=== PATIENT | male | born 1940 | race Caucasian/White ===

== ENCOUNTER 2017-03-23 10:45 | Outpatient (CLI) | payer MEDICARE ==
[2017-03-23 18:18] LABS: BASOPHILS % (AUTO) 0.5 %; EOSINOPHILS # (AUTO) 0.1 10^3/uL (0.0-0.7); EOSINOPHILS % (AUTO) 3.3 %; HCT - HEMATOCRIT 46.2 % (42.0-52.0); HGB - HEMOGLOBIN 15.5 g/dL (14.0-18.0); LYMPHOCYTES # (AUTO) 0.6 10^3/uL (1.5-3.5); LYMPHOCYTES % (AUTO) 16.5 %; MEAN CORPUSCULAR HEMOGLOBIN 32.3 pg (27.0-31.0); MEAN CORPUSCULAR HGB CONC 33.6 g/dL (32.0-36.0); MEAN CORPUSCULAR VOLUME 95.9 fL (80.0-94.0); MEAN PLATELET VOLUME 9.7 fL (7.4-11.4); MONOCYTES # (AUTO) 0.3 10^3/uL (0.0-1.0); MONOCYTES % (AUTO) 8.3 %; NEUTROPHILS # (AUTO) 2.8 10^3/uL (1.5-6.6); NEUTROPHILS % (AUTO) 71.4 %; NUCLEATED RED BLOOD CELLS AUTO 0.1 /100WBC; RED BLOOD COUNT 4.82 10^6/uL (4.70-6.10); RED CELL DISTRIBUTION WIDTH 13.4 % (12.0-15.0); UNCORRECTED WHITE BLOOD COUNT 3.9 x10^3/uL; WHITE BLOOD COUNT 3.9 x10^3/uL (4.8-10.8)
[2017-03-23 18:48] LABS: CHOL/HDL RATIO 5.3 (<5.0); CHOLESTEROL 227 mg/dL; HDL CHOLESTEROL 43 mg/dL; LDL/HDL RATIO 3.7 (<3.6); TRIGLYCERIDES 116 mg/dL; URIC ACID 6.7 mg/dL (2.6-7.2); VLDL CHOLESTEROL 23 mg/dL
[2017-03-23 20:33] LABS: HEMOGLOBIN A1C 0.7 g/dL
== END 2017-03-23 10:46 | disposition home or self-care (01) ==
LOC: LAB.F 10:45
PROVIDERS: ATTEND Internal Medicine
DX: E74.39 Other disorders of intestinal carbohydrate absorption (principal); E78.5 Hyperlipidemia, unspecified; R73.9 Hyperglycemia, unspecified; M1A.9XX0 Chronic gout, unspecified, without tophus (tophi); Z79.899 Other long term (current) drug therapy
CPT/HCPCS: 36415; 80061; 83036; 84443; 84550; 85025

== ENCOUNTER 2017-03-26 08:00 | Outpatient (CLI) | payer MEDICARE ==
[2017-03-26 19:34] LABS: ALBUMIN/GLOBULIN RATIO 1.7 (1.0-2.2); BILIRUBIN,TOTAL 1.2 mg/dL (0.2-1.0); CREATININE 1.1 mg/dL (0.6-1.2); POTASSIUM 4.1 mmol/L (3.5-5.0); TOTAL PROTEIN 6.8 g/dL (6.7-8.2)
== END 2017-03-26 08:01 | disposition home or self-care (01) ==
LOC: LAB.S 08:00
PROVIDERS: ATTEND Internal Medicine
DX: E74.39 Other disorders of intestinal carbohydrate absorption (principal); E78.5 Hyperlipidemia, unspecified; M1A.9XX0 Chronic gout, unspecified, without tophus (tophi); Z79.899 Other long term (current) drug therapy
CPT/HCPCS: 80053

== ENCOUNTER 2018-04-18 09:04 | Outpatient (CLI) | payer MEDICARE ==
[2018-04-18 17:19] LABS: BASOPHILS % (AUTO) 0.7 %; EOSINOPHILS # (AUTO) 0.1 10^3/uL (0.0-0.7); EOSINOPHILS % (AUTO) 3.1 %; HGB - HEMOGLOBIN 15.3 g/dL (14.0-18.0); LYMPHOCYTES # (AUTO) 0.9 10^3/uL (1.5-3.5); LYMPHOCYTES % (AUTO) 18.7 %; MEAN CORPUSCULAR HGB CONC 34.3 g/dL (32.0-36.0); MEAN PLATELET VOLUME 9.3 fL (7.4-11.4); MONOCYTES # (AUTO) 0.5 10^3/uL (0.0-1.0); MONOCYTES % (AUTO) 11.7 %; NEUTROPHILS % (AUTO) 65.8 %; PLT - PLATELET COUNT 141 10^3/uL (130-450); RED BLOOD COUNT 4.64 10^6/uL (4.70-6.10); RED CELL DISTRIBUTION WIDTH 13.4 % (12.0-15.0); WHITE BLOOD COUNT 4.6 x10^3/uL (4.8-10.8)
[2018-04-18 18:00] LABS: ALBUMIN/GLOBULIN RATIO 1.4 (1.0-2.2); BILIRUBIN,TOTAL 0.9 mg/dL (0.2-1.0); CREATININE 1.1 mg/dL (0.6-1.2); TOTAL PROTEIN 6.9 g/dL (6.7-8.2); URIC ACID 7.1 mg/dL (2.6-7.2)
[2018-04-18 18:56] LABS: HB2 TOTAL 16.1 g/dL; HEMOGLOBIN A1C 0.73 g/dL; HEMOGLOBIN A1C % 6.3 % (4.6-6.2)
== END 2018-04-18 09:05 | disposition home or self-care (01) ==
LOC: LAB.F 09:04
PROVIDERS: ATTEND Internal Medicine
DX: R73.9 Hyperglycemia, unspecified (principal); E78.5 Hyperlipidemia, unspecified; M1A.9XX0 Chronic gout, unspecified, without tophus (tophi)
CPT/HCPCS: 36415; 80053; 83036; 84550; 85025

== ENCOUNTER 2018-11-08 07:47 | Outpatient (CLI) | payer MEDICARE ==
--- NOTE | 2018-11-08 15:09 | Ultrasound Report ---
Reason: PAIN IN RIGHT LOWER LEG Procedure Date: 11/08/2018 Accession Number: [id number] / [id number] Procedure: US - Ankle Brachial Index CPT Code: FULL RESULT: EXAM: BILATERAL ANKLE/BRACHIAL INDEX EXAM DATE: 11/08/2018 09:27 AM. CLINICAL HISTORY: Right leg pain COMPARISON: None. TECHNIQUE: A blood pressure cuff and pulse volume recording Doppler ultrasound was used to evaluate the arterial pressures in the arms and ankle. No images were acquired. FINDINGS: Brachial pressure: Right brachial artery: 205/81 Left brachial artery: 205/81 Right ankle pressures: 79/20. Right posterior tibial artery not seen. Peak systolic velocity dorsalis pedis artery 9 cm/s. Monophasic flow. Left ankle pressures: 97/70. Posterior tibial artery peak systolic velocity 8 cm/s, dorsalis pedis artery 3 cm/s. Monophasic blood flow of both arteries. IMPRESSION: 1. Right ankle/brachial index: 0.39. 2. Left ankle/brachial index: 0.47. ANKLE/BRACHIAL INDEX REFERENCE STANDARDS 1.0-1.4: Normal 0.90-0.99: Borderline < 0.9: Abnormal RADIA
== END 2018-11-08 07:48 | disposition home or self-care (01) ==
LOC: DI 07:47
PROVIDERS: ATTEND Internal Medicine
DX: M79.661 Pain in right lower leg (principal)
CPT/HCPCS: 93922

== ENCOUNTER 2018-11-20 22:18 | Outpatient (CLI) | payer MEDICARE ==
--- NOTE | 2018-11-21 01:15 | Ultrasound Report ---
Reason: CLAUDICATION DUE TO PERIPHERAL VASCULAR DISEASE Procedure Date: 11/20/2018 Accession Number: [id number] / [id number] Procedure: US - Duplex Lwr Ext Arterial Bilat CPT Code: FULL RESULT: EXAM: BILATERAL LOWER EXTREMITY ARTERIAL DOPPLER ULTRASOUND EXAM DATE: 11/20/2018 11:55 PM. CLINICAL HISTORY: Claudication due to peripheral vascular disease. COMPARISON: None. TECHNIQUE: Real-time sonographic vascular imaging was performed by the income tax preparer, utilizing color-flow, Doppler flow, and spectral analysis. Multiple floor representative static images were saved for review. FINDINGS: Right Side: Moderate calcified and soft plaque is noted throughout the right distal common femoral as well as within the superficial femoral arteries. Occluded superficial femoral artery at the midportion and extending distally. There are adjacent arterial collaterals noted. Reconstitution is noted at the level of the popliteal artery. However, occluded arterial flow is again seen involving the posterior tibial and peroneal arteries. There is slow flow seen within the distal peroneal artery. Slow flow noted within the anterior tibial artery and into the dorsalis pedis region. Left Side: Moderate to severe atherosclerotic vascular disease within the distal left common femoral artery. Similar moderate to severe atherosclerosis within the superficial femoral artery. Focal occlusion of the left distal superficial femoral artery with collateral vascularity seen. Occluded left distal popliteal artery. Patent anterior tibial, peroneal, and posterior tibial arteries with patent blood flow seen within the left dorsalis pedis. High-grade stenosis at the origin of the left profunda femoris. Right Lower Extremity: MOLDER MACHINE TENDER: PSV 92 cm/sec. PSFA: PSV 99 cm/sec. MSFA: Occluded, no flow seen. DSFA: Occluded, no flow seen. PFA: PSV 112 cm/sec. POP: PSV 121 cm/sec. RASHMI: PSV 19 cm/sec. RECORDS MANAGEMENT COORDINATOR: Not seen/occluded. PRIYA: PSV 18 cm/sec. DPA: PSV 40 cm/sec. Left Lower Extremity: MOLDER MACHINE TENDER: PSV 76 cm/sec. PSFA: PSV 62 cm/sec. MSFA: PSV 47 cm/sec. DSFA: Occluded, no flow seen. PFA: Pre-stenosis PSV 135 cm/sec, at stenosis PSV 399 cm/sec. POP: PSV 90 cm/sec, occluded. RASHMI: PSV 7 cm/sec. RECORDS MANAGEMENT COORDINATOR: PSV 16 cm/sec. PRIYA: PSV 14 cm/sec. DPA: PSV 10 cm/sec. IMPRESSION: 1. Occlusion of the middle and distal portions of the right superficial femoral artery with collateral vascularity seen around this occluded segment. Reconstitution at the level of the popliteal artery. 2. Occlusion of the posterior tibial artery on the right and proximal peroneal artery on the right. 3. Occluded distal femoral artery on the left. Occluded left popliteal artery. Patent distal lower extremity arteries on the left. 4. High-grade stenosis at the origin of the left profunda femoris. 4. Moderate to severe atherosclerotic vascular disease within the common femoral and the superficial femoral arteries bilaterally. RADIA The call report notification system was initiated by Dr. Manav Byrnes at 01:13 AM on 11/21/2018. The above call report findings were discussed with Hollis Chapman by Dr. Manav Byrnes at 01:15 AM on 11/21/2018.
== END 2018-11-20 22:19 | disposition home or self-care (01) ==
LOC: DI 22:18
PROVIDERS: ATTEND Family Medicine
DX: I73.9 Peripheral vascular disease, unspecified (principal); I70.92 Chronic total occlusion of artery of the extremities; I70.202 Unspecified atherosclerosis of native arteries of extremities, left leg
CPT/HCPCS: 93925

== ENCOUNTER 2019-01-02 09:42 | Outpatient (CLI) | payer MEDICARE ==
[2019-01-02 18:02] LABS: ALBUMIN 4.2 g/dL (3.2-5.5); ALBUMIN/GLOBULIN RATIO 1.2 (1.0-2.2); ALKALINE PHOSPHATASE 57 IU/L (42-121); ALT ALANINE AMINOTRANSFERASE 13 IU/L (10-60); AST ASPARTATE AMINOTRANSFERASE 15 IU/L (10-42); BILIRUBIN,TOTAL 0.8 mg/dL (0.2-1.0); BUN - BLOOD UREA NITROGEN 24 mg/dL (6-20); CALCIUM 9.4 mg/dL (8.5-10.3); CARBON DIOXIDE - CO2 29 mmol/L (21-32); CHLORIDE 100 mmol/L (101-111); CHOL/HDL RATIO 6.2 (<5.0); CHOLESTEROL 203 mg/dL; GFR - MDRD 72 (>89); GLUCOSE 114 mg/dL (70-100); HDL CHOLESTEROL 33 mg/dL; LDL CHOLESTEROL,CALCULATED 139 mg/dL; LDL/HDL RATIO 4.2 (<3.6); SODIUM 137 mmol/L (135-145); TOTAL PROTEIN 7.6 g/dL (6.7-8.2); VLDL CHOLESTEROL 31 mg/dL
[2019-01-02 19:02] LABS: HB2 TOTAL 15.1 g/dL; HEMOGLOBIN A1C 0.68 g/dL; HEMOGLOBIN A1C % 6.3 % (4.6-6.2)
== END 2019-01-02 09:43 | disposition home or self-care (01) ==
LOC: LAB.F 09:42
PROVIDERS: ATTEND Internal Medicine
DX: E78.5 Hyperlipidemia, unspecified (principal); R73.02 Impaired glucose tolerance (oral)
CPT/HCPCS: 36415; 80053; 80061; 83036; 83721

== ENCOUNTER 2019-01-15 08:21 | Outpatient (CLI) | payer MEDICARE ==
--- NOTE | 2019-01-15 09:33 | XRAY Report ---
Reason: CELLULITIS,FOOT,LEFT L03.116 Procedure Date: 01/15/2019 Accession Number: [id number] / [id number] Procedure: XRS - Foot 3 View LT CPT Code: FULL RESULT: EXAM: LEFT FOOT RADIOGRAPHY EXAM DATE: 01/15/2019 08:48 AM. CLINICAL HISTORY: Cellulitis, foot, left. l03.116. Worsening cellulitis despite appropriate antibiotics. Possible osteomyelitis. COMPARISON: None. TECHNIQUE: 3 views. FINDINGS: Bones: Moderate posterior calcaneal insertional enthesophyte. There is mild osseous lucency in the region of the lateral aspect of the first metatarsal head without definite osseous destruction in the area. Oblique view is suggestive of periosteal reaction formation in the same region. No fractures or bone lesions. Joints: Normal. No subluxations. Soft Tissues: No soft tissue gas is detected. IMPRESSION: Correlate questionable osseous changes in the region of the head of the first metatarsal to the area of infection, if the two correspond, this raises suspicion for osteomyelitis. RADIA
== END 2019-01-15 08:22 | disposition home or self-care (01) ==
LOC: DI.S 08:21
PROVIDERS: ATTEND Internal Medicine
DX: L03.116 Cellulitis of left lower limb (principal)

== ENCOUNTER 2019-05-20 11:42 | Outpatient (CLI) | payer MEDICARE | END 2019-05-20 11:43 | disposition home or self-care (01) | LOC: LAB.S 11:42 | PROVIDERS: ATTEND Internal Medicine | DX: I48.91 Unspecified atrial fibrillation (principal); Z79.01 Long term (current) use of anticoagulants | CPT/HCPCS: 85610 ==

== ENCOUNTER 2019-06-16 15:04 | Outpatient (CLI) | payer MEDICARE | END 2019-06-16 15:05 | disposition home or self-care (01) | LOC: LAB.S 15:04 | PROVIDERS: ATTEND Internal Medicine | DX: Z79.01 Long term (current) use of anticoagulants (principal); I48.91 Unspecified atrial fibrillation | CPT/HCPCS: 85610 ==

== ENCOUNTER 2019-06-25 13:27 | Outpatient (CLI) | payer MEDICARE ==
[2019-06-25 17:11] LABS: BASOPHILS % (AUTO) 0.4 %; EOSINOPHILS # (AUTO) 0.2 10^3/uL (0.0-0.7); EOSINOPHILS % (AUTO) 4.1 %; HGB - HEMOGLOBIN 13.3 g/dL (14.0-18.0); LYMPHOCYTES # (AUTO) 0.8 10^3/uL (1.5-3.5); LYMPHOCYTES % (AUTO) 16.2 %; MEAN CORPUSCULAR HEMOGLOBIN 31.7 pg (27.0-31.0); MEAN CORPUSCULAR HGB CONC 32.5 g/dL (32.0-36.0); MEAN CORPUSCULAR VOLUME 97.4 fL (80.0-94.0); MEAN PLATELET VOLUME 11.7 fL (7.4-11.4); MONOCYTES # (AUTO) 0.5 10^3/uL (0.0-1.0); MONOCYTES % (AUTO) 11.4 %; NEUTROPHILS # (AUTO) 3.1 10^3/uL (1.5-6.6); NEUTROPHILS % (AUTO) 67.7 %; PLT - PLATELET COUNT 145 10^3/uL (130-450); RED CELL DISTRIBUTION WIDTH 12.7 % (12.0-15.0); WHITE BLOOD COUNT 4.6 x10^3/uL (4.8-10.8)
[2019-06-25 17:16] LABS: INR 2.5 (0.8-1.2); PT - PROTHROMBIN TIME 26.8 secs (9.9-12.6)
[2019-06-25 17:31] LABS: CALCIUM 9.3 mg/dL (8.5-10.3); CREATININE 1.2 mg/dL (0.6-1.2)
== END 2019-06-25 13:28 | disposition home or self-care (01) ==
LOC: LAB.S 13:27
PROVIDERS: ATTEND Internal Medicine Cardiovascular Disease
DX: I25.2 Old myocardial infarction (principal); I25.9 Chronic ischemic heart disease, unspecified; E78.5 Hyperlipidemia, unspecified
CPT/HCPCS: 36415; 80048; 85025; 85610

== ENCOUNTER 2019-07-18 11:00 | Outpatient (CLI) | payer MEDICARE | END 2019-07-18 23:59 | disposition home or self-care (01) | LOC: LAB.S 11:00 | PROVIDERS: ATTEND Internal Medicine | DX: Z79.01 Long term (current) use of anticoagulants (principal); I48.91 Unspecified atrial fibrillation | CPT/HCPCS: 85610 ==

== ENCOUNTER 2019-07-30 14:55 | Outpatient (CLI) | payer MEDICARE | END 2019-07-30 14:56 | disposition home or self-care (01) | LOC: LAB.S 14:55 | PROVIDERS: ATTEND Internal Medicine | DX: Z79.01 Long term (current) use of anticoagulants (principal); I48.91 Unspecified atrial fibrillation | CPT/HCPCS: 85610 ==

== ENCOUNTER 2019-08-18 10:26 | Outpatient (CLI) | payer MEDICARE | END 2019-08-18 10:27 | disposition home or self-care (01) | LOC: LAB.S 10:26 | PROVIDERS: ATTEND Family Medicine | DX: Z79.01 Long term (current) use of anticoagulants (principal) | CPT/HCPCS: 85610 ==

== ENCOUNTER 2019-08-31 09:06 | Emergency (ER) | payer MEDICARE ==
--- NOTE | 2019-08-31 09:30 | ED Physician Documentation ---
PD HPI UPPER EXT INJURY - Stated complaint Stated Complaint: RT ARM LAC - History obtained from History obtained from: Patient, Family - History of Present Illness Location: Right, Forearm Type of injury: Other (scratched with a fingernail) Where injury occurred: Home Timing - onset: Yesterday Timing - duration: Days (1) Timing - details: Abrupt onset, Still present Worsened by: Moving Associated symptoms: No: Weakness, Numbness Contributing factors: Anticoagulated Similar symptoms before: Diagnosis (laceration) Recently seen: Not recently seen - Additonal information Additional information: 79-year-old male with a history of peripheral vascular disease who is on multiple blood thinners has scratched his right forearm with his fingernail and has a linear abrasion that continues to bleed. He has had blood oozing through the entire night and he is come in now for evaluation. Review of Systems Constitutional: denies: Fever GI: denies: Vomiting Skin: reports: Laceration (s) Neurologic: denies: Generalized weakness, Focal weakness, Numbness PD PAST MEDICAL HISTORY - Present Medications Home Medications: Ambulatory Orders Medication Instructions Recorded Confirmed Isosorbide Mononitrate ER [Imdur] 60 mg DAILY 08/31/19 08/31/19 Lisinopril [Zestril] 20 mg DAILY 08/31/19 08/31/19 Metoprolol Tartrate 25 mg PO BID 08/31/19 08/31/19 Pantoprazole [Protonix] 20 mg DAILY 08/31/19 08/31/19 Rosuvastatin Calcium 20 mg DAILY 08/31/19 08/31/19 Warfarin [Coumadin] 2.5 mg DAILY 08/31/19 08/31/19 amLODIPine [Norvasc] 5 mg DAILY 08/31/19 08/31/19 metFORMIN [Glucophage] 1,000 mg DAILY 08/31/19 08/31/19 - Allergies Allergies/Adverse Reactions: Allergies Allergy/AdvReac Type Severity Reaction Status Date / Time No Known Drug Allergies Allergy Verified 08/31/19 09:28 PD ED PE NORMAL - Vitals Vital signs reviewed: Yes - General General: Alert and oriented X 3, No acute distress, Well developed/nourished - HEENT HEENT: Atraumatic, PERRL, EOMI - Respiratory Respiratory: No respiratory distress - Derm Derm: Normal color, Warm and dry, No rash - Extremities Extremities: No deformity, No edema, Other (There is a 3 cm superficial laceration to the right forearm that is oozing blood. There is ecchymosis to the surrounding area.) - Neuro Neuro: No motor deficit, No sensory deficit Results - Vitals Vitals: Vital Signs - 24 hr 08/31/19 09:15 Temperature 36.8 C Heart Rate 52 L Respiratory 16 Rate Blood Pressure 170/64 H O2 Saturation 98 Oxygen O2 Source Room air - Labs Labs: Laboratory Tests 08/31/19 09:37 Whole Blood INR 3.1 H Procedures - Laceration (location) forearm Length in cm: 3 Wound type: Linear, Superficial Neurovascular status: Sensory intact, Motor intact, Vascular intact Wound Preparation: Irrigated copiously NS, Wound explored, To the base Skin layer closure: Dermabond, Steri strips Other: Patient tolerated well, No complications, Neurovascular intact, Dressing applied Complexity: Simple Departure - Departure Disposition: 01 Home, Self Care Clinical Impression: Forearm laceration Qualifiers: Encounter type: initial encounter Laterality: right Qualified Code(s): S51.811A - Laceration without foreign body of right forearm, initial encounter Condition: Stable Instructions: ED Laceration Ext Skin Glue Follow-Up: Yehuda Tamez MD [Primary Care Provider] -
[2019-08-31 10:18] VITALS: BP 146/54
== END 2019-08-31 10:20 | disposition home or self-care (01) ==
LOC: ED 09:06
DX: S51.811A Laceration without foreign body of right forearm, initial encounter (principal); Z79.01 Long term (current) use of anticoagulants
CPT/HCPCS: 12002; 85610; 99282; 99283

== ENCOUNTER 2019-09-15 11:43 | Outpatient (CLI) | payer MEDICARE | END 2019-09-15 11:44 | disposition home or self-care (01) | LOC: LAB.S 11:43 | PROVIDERS: ATTEND Family Medicine | DX: Z79.01 Long term (current) use of anticoagulants (principal) | CPT/HCPCS: 85610 ==

== ENCOUNTER 2019-10-16 08:00 | Outpatient (CLI) | payer MEDICARE | END 2019-10-16 23:59 | disposition home or self-care (01) | LOC: LAB.WCP 08:00 | PROVIDERS: ATTEND Family Medicine | DX: I48.91 Unspecified atrial fibrillation (principal); Z79.01 Long term (current) use of anticoagulants ==

== ENCOUNTER 2019-12-09 13:11 | Outpatient (CLI) | payer MEDICARE | END 2019-12-09 13:12 | disposition home or self-care (01) | LOC: LAB.S 13:11 | PROVIDERS: ATTEND Family Medicine | DX: Z79.01 Long term (current) use of anticoagulants (principal) | CPT/HCPCS: 85610 ==

== ENCOUNTER 2020-01-06 10:57 | Outpatient (CLI) | payer MEDICARE | END 2020-01-06 10:58 | disposition home or self-care (01) | LOC: LAB.S 10:57 | PROVIDERS: ATTEND Family Medicine | DX: Z79.01 Long term (current) use of anticoagulants (principal) | CPT/HCPCS: 85610 ==

== ENCOUNTER 2020-02-05 13:49 | Outpatient (CLI) | payer MEDICARE | END 2020-02-05 13:50 | disposition home or self-care (01) | LOC: LAB.S 13:49 | PROVIDERS: ATTEND Family Medicine | DX: Z79.01 Long term (current) use of anticoagulants (principal) | CPT/HCPCS: 85610 ==

== ENCOUNTER 2020-03-08 14:03 | Outpatient (CLI) | payer MEDICARE | END 2020-03-08 14:04 | disposition home or self-care (01) | LOC: LAB.S 14:03 | PROVIDERS: ATTEND Family Medicine | DX: Z79.01 Long term (current) use of anticoagulants (principal) | CPT/HCPCS: 85610 ==

== ENCOUNTER 2020-04-03 23:06 | Emergency (ER) | payer MEDICARE ==
--- NOTE | 2020-04-03 23:14 | ED Physician Documentation ---
History of Present Illness - Stated complaint Stated Complaint: L ELBOW LAC - History obtained from History obtained from: Patient - Additonal information Additional information: 79-year-old male accidentally tore a small portion of skin over his left elbow. Accidentally injured it against a doorknob. He is on Coumadin and reports here for evaluation. Review of Systems Constitutional: reports: Reviewed and negative Eyes: reports: Reviewed and negative Ears: reports: Reviewed and negative Nose: reports: Reviewed and negative Throat: reports: Reviewed and negative Cardiac: reports: Reviewed and negative Respiratory: reports: Reviewed and negative GI: reports: Reviewed and negative : reports: Reviewed and negative Skin: reports: Laceration (s), Other (Skin tear and bleeding) Musculoskeletal: reports: Reviewed and negative Neurologic: reports: Reviewed and negative Psychiatric: reports: Reviewed and negative Endocrine: reports: Reviewed and negative Immunocompromised: reports: Reviewed and negative PD PAST MEDICAL HISTORY - Present Medications Home Medications: Ambulatory Orders Medication Instructions Recorded Confirmed Isosorbide Mononitrate ER [Imdur] 60 mg DAILY 08/31/19 08/31/19 Lisinopril [Zestril] 20 mg DAILY 08/31/19 08/31/19 Metoprolol Tartrate 25 mg PO BID 08/31/19 08/31/19 Pantoprazole [Protonix] 20 mg DAILY 08/31/19 08/31/19 Rosuvastatin Calcium 20 mg DAILY 08/31/19 08/31/19 Warfarin [Coumadin] 2.5 mg DAILY 08/31/19 08/31/19 amLODIPine [Norvasc] 5 mg DAILY 08/31/19 08/31/19 metFORMIN [Glucophage] 1,000 mg DAILY 08/31/19 08/31/19 - Allergies Allergies/Adverse Reactions: Allergies Allergy/AdvReac Type Severity Reaction Status Date / Time No Known Drug Allergies Allergy Verified 04/03/20 23:13 PD ED PE NORMAL - Vitals Vital signs reviewed: Yes - General General: Alert and oriented X 3, No acute distress, Well developed/nourished - HEENT HEENT: PERRL - Neck Neck: Supple, no meningeal sign - Cardiac Cardiac: RRR, No murmur, Strong equal pulses - Respiratory Respiratory: No respiratory distress, Clear bilaterally - Abdomen Abdomen: Normal bowel sounds, Soft, Non tender, Non distended, No organomegaly - Derm Derm: Normal color, Warm and dry, Other (Small skin tear over the left proximal forearm approximately 2 cm with minimal bleeding radian, median, ulnar motor and sensory exam are intact compartments are soft neurovascular intact) - Extremities Extremities: No deformity, Other (Small skin tear over the left proximal forearm approximately 2 cm with minimal bleeding radian, median, ulnar motor and sensory exam are intact compartments are soft neurovascular intact) - Neuro Neuro: Alert and oriented X 3 - Psych Psych: Normal mood, Normal affect Results - Vitals Vitals: Vital Signs - 24 hr 04/03/20 04/04/20 23:13 00:27 Temperature 36.5 C 36.8 C Heart Rate 84 82 Respiratory 16 16 Rate Blood Pressure 180/94 H 149/61 H O2 Saturation 97 96 Oxygen O2 Source Room air Procedures - General procedure General procedure: Skin tear to the left elbow region its superficial there is minimal bleeding it was irrigated he is up-to-date on his tetanus bacitracin and simple pressure dressing were applied with bleeding controlled. PD MEDICAL DECISION MAKING - ED course ED course: 79-year-old male on Coumadin suffered a small skin tear over his left proximal forearm/elbow region presents for evaluation his tetanus is up-to-date wound was irrigated no foreign bodies identified bleeding was controlled with a simple pressure dressing bacitracin was applied he should follow-up on Sunday with his primary care provider for a wound check. Departure - Departure Disposition: 01 Home, Self Care Clinical Impression: Skin tear Condition: Stable Instructions: ED Avulsion Dermal Follow-Up: Yehuda Tamez MD [Primary Care Provider] - Tomorrow Comments: Keep wound clean, dressed and protected at all times. follow-up on Sunday with your doctor for a wound check. Discharge Date/Time: 04/04/20 00:28
[2020-04-04] MEDS ORDERED: BACITRACIN ZINC OINT 1 PACKET TOP STA (00:10)
[2020-04-04 00:28] VITALS: BP 149/61
== END 2020-04-04 00:28 | disposition home or self-care (01) ==
LOC: ED 23:06
DX: S51.812A Laceration without foreign body of left forearm, initial encounter (principal); W22.8XXA Striking against or struck by other objects, initial encounter; Z79.01 Long term (current) use of anticoagulants
CPT/HCPCS: 99282; A9270

== ENCOUNTER 2020-05-07 12:22 | Outpatient (CLI) | payer MEDICARE | END 2020-05-07 12:23 | disposition home or self-care (01) | LOC: LAB.S 12:22 | PROVIDERS: ATTEND Family Medicine | DX: Z79.01 Long term (current) use of anticoagulants (principal) | CPT/HCPCS: 85610 ==

== ENCOUNTER 2020-06-07 11:05 | Outpatient (CLI) | payer MEDICARE | END 2020-06-07 11:06 | disposition home or self-care (01) | LOC: LAB.S 11:05 | PROVIDERS: ATTEND Family Medicine | DX: Z79.01 Long term (current) use of anticoagulants (principal) | CPT/HCPCS: 85610 ==

== ENCOUNTER 2020-07-07 12:35 | Outpatient (CLI) | payer MEDICARE | END 2020-07-07 12:36 | disposition home or self-care (01) | LOC: LAB.S 12:35 | PROVIDERS: ATTEND Family Medicine | DX: Z79.01 Long term (current) use of anticoagulants (principal) | CPT/HCPCS: 85610 ==

== ENCOUNTER 2020-08-09 12:58 | Outpatient (CLI) | payer MEDICARE | END 2020-08-09 12:59 | disposition home or self-care (01) | LOC: LAB.S 12:58 | PROVIDERS: ATTEND Family Medicine | DX: Z79.01 Long term (current) use of anticoagulants (principal) | CPT/HCPCS: 85610 ==

== ENCOUNTER 2020-09-07 11:17 | Outpatient (CLI) | payer MEDICARE | END 2020-09-07 11:18 | disposition home or self-care (01) | LOC: LAB.S 11:17 | PROVIDERS: ATTEND Family Medicine | DX: Z79.01 Long term (current) use of anticoagulants (principal) | CPT/HCPCS: 85610 ==

== ENCOUNTER 2020-10-07 12:03 | Outpatient (CLI) | payer MEDICARE | END 2020-10-07 12:04 | disposition home or self-care (01) | LOC: LAB.S 12:03 | PROVIDERS: ATTEND Family Medicine | DX: Z79.01 Long term (current) use of anticoagulants (principal) | CPT/HCPCS: 85610 ==

== ENCOUNTER 2020-11-08 12:40 | Outpatient (CLI) | payer MEDICARE | END 2020-11-08 12:41 | disposition home or self-care (01) | LOC: LAB.S 12:40 | PROVIDERS: ATTEND Family Medicine | DX: Z79.01 Long term (current) use of anticoagulants (principal) | CPT/HCPCS: 36416; 85610 ==

== ENCOUNTER 2020-12-09 10:39 | Outpatient (CLI) | payer MEDICARE | END 2020-12-09 10:40 | disposition home or self-care (01) | LOC: LAB.S 10:39 | PROVIDERS: ATTEND Family Medicine | DX: Z79.01 Long term (current) use of anticoagulants (principal) | CPT/HCPCS: 36416; 85610 ==

== ENCOUNTER 2021-02-08 11:13 | Outpatient (CLI) | payer MEDICARE | END 2021-02-08 11:14 | disposition home or self-care (01) | LOC: LAB.S 11:13 | PROVIDERS: ATTEND Family Medicine | DX: Z79.01 Long term (current) use of anticoagulants (principal) | CPT/HCPCS: 36416; 85610 ==

== ENCOUNTER 2021-03-10 10:51 | Outpatient (CLI) | payer MEDICARE | END 2021-03-10 10:52 | disposition home or self-care (01) | LOC: LAB.S 10:51 | PROVIDERS: ATTEND Family Medicine | DX: Z79.01 Long term (current) use of anticoagulants (principal) | CPT/HCPCS: 36416; 85610 ==

== ENCOUNTER 2021-04-09 11:53 | Outpatient (CLI) | payer MEDICARE | END 2021-04-09 11:54 | disposition home or self-care (01) | LOC: LAB.S 11:53 | PROVIDERS: ATTEND Family Medicine | DX: Z79.01 Long term (current) use of anticoagulants (principal) | CPT/HCPCS: 36416; 85610 ==

== ENCOUNTER 2021-05-09 13:48 | Outpatient (CLI) | payer MEDICARE | END 2021-05-09 13:49 | disposition home or self-care (01) | LOC: LAB.S 13:48 | PROVIDERS: ATTEND Family Medicine | DX: Z79.01 Long term (current) use of anticoagulants (principal) | CPT/HCPCS: 36416; 85610 ==

== ENCOUNTER 2021-06-08 13:37 | Outpatient (CLI) | payer MEDICARE | END 2021-06-08 13:38 | disposition home or self-care (01) | LOC: LAB.S 13:37 | PROVIDERS: ATTEND Family Medicine | DX: Z79.01 Long term (current) use of anticoagulants (principal) | CPT/HCPCS: 36416; 85610 ==

== ENCOUNTER 2021-06-20 12:00 | Outpatient (CLI) | payer MEDICARE | END 2021-06-20 12:01 | disposition home or self-care (01) | LOC: LAB.S 12:00 | PROVIDERS: ATTEND Family Medicine | DX: Z79.01 Long term (current) use of anticoagulants (principal) | CPT/HCPCS: 36416; 85610 ==

== ENCOUNTER 2021-07-12 13:20 | Outpatient (CLI) | payer MEDICARE | END 2021-07-12 13:21 | disposition home or self-care (01) | LOC: LAB.S 13:20 | PROVIDERS: ATTEND Family Medicine | DX: Z79.01 Long term (current) use of anticoagulants (principal) | CPT/HCPCS: 36416; 85610 ==

== ENCOUNTER 2021-08-11 13:05 | Outpatient (CLI) | payer MEDICARE | END 2021-08-11 13:06 | disposition home or self-care (01) | LOC: LAB.S 13:05 | PROVIDERS: ATTEND Family Medicine | DX: Z79.01 Long term (current) use of anticoagulants (principal) | CPT/HCPCS: 36416; 85610 ==

== ENCOUNTER 2021-09-07 12:24 | Outpatient (CLI) | payer MEDICARE | END 2021-09-07 12:25 | disposition home or self-care (01) | LOC: LAB.S 12:24 | PROVIDERS: ATTEND Family Medicine | DX: Z79.01 Long term (current) use of anticoagulants (principal) | CPT/HCPCS: 36416; 85610 ==

== ENCOUNTER 2021-10-07 12:24 | Outpatient (CLI) | payer MEDICARE | END 2021-10-07 12:25 | disposition home or self-care (01) | LOC: LAB.S 12:24 | PROVIDERS: ATTEND Family Medicine | DX: Z79.01 Long term (current) use of anticoagulants (principal) | CPT/HCPCS: 36416; 85610 ==

== ENCOUNTER 2021-11-08 13:57 | Outpatient (CLI) | payer MEDICARE | END 2021-11-08 13:58 | disposition home or self-care (01) | LOC: LAB.S 13:57 | PROVIDERS: ATTEND Family Medicine | DX: Z79.01 Long term (current) use of anticoagulants (principal) | CPT/HCPCS: 36416; 85610 ==

== ENCOUNTER 2022-01-11 09:57 | Outpatient (CLI) | payer MEDICARE | END 2022-01-11 09:58 | disposition home or self-care (01) | LOC: LAB.S 09:57 | PROVIDERS: ATTEND Family Medicine | DX: Z79.01 Long term (current) use of anticoagulants (principal) | CPT/HCPCS: 36416; 85610 ==

== ENCOUNTER 2022-02-07 11:30 | Outpatient (CLI) | payer MEDICARE | END 2022-02-07 11:31 | disposition home or self-care (01) | LOC: LAB.S 11:30 | PROVIDERS: ATTEND Family Medicine | DX: Z79.01 Long term (current) use of anticoagulants (principal) | CPT/HCPCS: 36416; 85610 ==

== ENCOUNTER 2022-03-15 11:41 | Outpatient (CLI) | payer MEDICARE | END 2022-03-15 11:42 | disposition home or self-care (01) | LOC: LAB.S 11:41 | PROVIDERS: ATTEND Family Medicine | DX: Z79.01 Long term (current) use of anticoagulants (principal) | CPT/HCPCS: 36416; 85610 ==

== ENCOUNTER 2022-04-11 12:16 | Outpatient (CLI) | payer MEDICARE | END 2022-04-11 12:17 | disposition home or self-care (01) | LOC: LAB.S 12:16 | PROVIDERS: ATTEND Family Medicine | DX: Z79.01 Long term (current) use of anticoagulants (principal) | CPT/HCPCS: 36416; 85610 ==

== ENCOUNTER 2022-06-16 11:55 | Outpatient (CLI) | payer MEDICARE | END 2022-06-16 11:56 | disposition home or self-care (01) | LOC: LAB.S 11:55 | PROVIDERS: ATTEND Family Medicine | DX: Z79.01 Long term (current) use of anticoagulants (principal) | CPT/HCPCS: 36416; 85610 ==

== ENCOUNTER 2022-08-11 13:36 | Outpatient (CLI) | payer MEDICARE | END 2022-08-11 13:37 | disposition home or self-care (01) | LOC: LAB.S 13:36 | PROVIDERS: ATTEND Family Medicine | DX: Z79.01 Long term (current) use of anticoagulants (principal) | CPT/HCPCS: 36416; 85610 ==

== ENCOUNTER 2022-10-09 13:14 | Outpatient (CLI) | payer MEDICARE | END 2022-10-09 13:15 | disposition home or self-care (01) | LOC: LAB.S 13:14 | PROVIDERS: ATTEND Family Medicine | DX: Z79.01 Long term (current) use of anticoagulants (principal) | CPT/HCPCS: 36416; 85610 ==

== ENCOUNTER 2022-11-09 12:25 | Outpatient (CLI) | payer MEDICARE | END 2022-11-09 12:26 | disposition home or self-care (01) | LOC: LAB.S 12:25 | PROVIDERS: ATTEND Family Medicine | DX: Z79.01 Long term (current) use of anticoagulants (principal) | CPT/HCPCS: 36416; 85610 ==

== ENCOUNTER 2022-12-11 10:43 | Outpatient (CLI) | payer MEDICARE | END 2022-12-11 10:44 | disposition home or self-care (01) | LOC: LAB.S 10:43 | PROVIDERS: ATTEND Family Medicine | DX: Z79.01 Long term (current) use of anticoagulants (principal) | CPT/HCPCS: 36416; 85610 ==

== ENCOUNTER 2023-01-10 13:44 | Outpatient (CLI) | payer MEDICARE | END 2023-01-10 13:45 | disposition home or self-care (01) | LOC: LAB.S 13:44 | PROVIDERS: ATTEND Family Medicine | DX: Z79.01 Long term (current) use of anticoagulants (principal) | CPT/HCPCS: 36416; 85610 ==

== ENCOUNTER 2023-02-07 10:36 | Outpatient (CLI) | payer MEDICARE | END 2023-02-07 10:37 | disposition home or self-care (01) | LOC: LAB.S 10:36 | PROVIDERS: ATTEND Nurse Practitioner Family | DX: Z79.01 Long term (current) use of anticoagulants (principal) | CPT/HCPCS: 36416; 85610 ==

== ENCOUNTER 2023-03-14 11:49 | Outpatient (CLI) | payer MEDICARE | END 2023-03-14 11:50 | disposition home or self-care (01) | LOC: LAB.S 11:49 | PROVIDERS: ATTEND Nurse Practitioner Family | DX: Z79.01 Long term (current) use of anticoagulants (principal) | CPT/HCPCS: 36416; 85610 ==

== ENCOUNTER 2023-04-09 12:52 | Outpatient (CLI) | payer MEDICARE | END 2023-04-09 12:53 | disposition home or self-care (01) | LOC: LAB.S 12:52 | PROVIDERS: ATTEND Nurse Practitioner Family | DX: Z79.01 Long term (current) use of anticoagulants (principal) | CPT/HCPCS: 36416; 85610 ==

== ENCOUNTER 2023-05-14 12:48 | Outpatient (CLI) | payer MEDICARE | END 2023-05-14 12:49 | disposition home or self-care (01) | LOC: LAB.S 12:48 | PROVIDERS: ATTEND Family Medicine | DX: Z79.01 Long term (current) use of anticoagulants (principal) | CPT/HCPCS: 36416; 85610 ==

== ENCOUNTER 2023-06-11 10:24 | Outpatient (CLI) | payer MEDICARE | END 2023-06-11 10:25 | disposition home or self-care (01) | LOC: LAB.S 10:24 | PROVIDERS: ATTEND Nurse Practitioner Family | DX: Z79.01 Long term (current) use of anticoagulants (principal) | CPT/HCPCS: 36416; 85610 ==

== ENCOUNTER 2023-07-10 13:51 | Outpatient (CLI) | payer MEDICARE | END 2023-07-10 13:52 | disposition home or self-care (01) | LOC: LAB.S 13:51 | PROVIDERS: ATTEND Nurse Practitioner Family | DX: Z79.01 Long term (current) use of anticoagulants (principal) | CPT/HCPCS: 36416; 85610 ==

== ENCOUNTER 2023-07-19 08:58 | Outpatient (CLI) | payer MEDICARE ==
[2023-07-19 14:54] LABS: BASOPHILS # (AUTO) 0.1 10^3/uL (0.0-0.1); BASOPHILS % (AUTO) 1.1 %; EOSINOPHILS # (AUTO) 0.2 10^3/uL (0.0-0.7); EOSINOPHILS % (AUTO) 4.7 %; HCT - HEMATOCRIT 42.2 % (42.0-52.0); HGB - HEMOGLOBIN 13.5 g/dL (14.0-18.0); LYMPHOCYTES # (AUTO) 0.8 10^3/uL (1.5-3.5); LYMPHOCYTES % (AUTO) 16.9 %; MEAN CORPUSCULAR HEMOGLOBIN 31.6 pg (27.0-31.0); MEAN CORPUSCULAR VOLUME 98.8 fL (80.0-94.0); MEAN PLATELET VOLUME 11.2 fL (7.4-11.4); MONOCYTES # (AUTO) 0.6 10^3/uL (0.0-1.0); MONOCYTES % (AUTO) 12.5 %; NEUTROPHILS # (AUTO) 3.1 10^3/uL (1.5-6.6); NEUTROPHILS % (AUTO) 64.6 %; PLT - PLATELET COUNT 145 10^3/uL (130-450); RED BLOOD COUNT 4.27 10^6/uL (4.70-6.10); RED CELL DISTRIBUTION WIDTH 13.1 % (12.0-15.0); WHITE BLOOD COUNT 4.7 x10^3/uL (4.8-10.8)
[2023-07-19 15:33] LABS: ALBUMIN 4.4 g/dL (3.2-5.5); ALBUMIN/GLOBULIN RATIO 1.8 (1.0-2.2); ALKALINE PHOSPHATASE 46 IU/L (42-121); ALT ALANINE AMINOTRANSFERASE 14 IU/L (10-60); AST ASPARTATE AMINOTRANSFERASE 18 IU/L (10-42); BILIRUBIN,TOTAL 0.8 mg/dL (0.2-1.0); BUN - BLOOD UREA NITROGEN 28 mg/dL (6-20); CALCIUM 9.5 mg/dL (8.5-10.3); CARBON DIOXIDE - CO2 30 mmol/L (21-32); CHLORIDE 104 mmol/L (101-111); CHOL/HDL RATIO 2.1 (<5.0); CHOLESTEROL 107 mg/dL; CREATININE 1.3 mg/dL (0.6-1.3); GFR - MDRD 52 (>89); GLUCOSE 103 mg/dL (74-104); HDL CHOLESTEROL 52 mg/dL; LDL CHOLESTEROL,CALCULATED 41 mg/dL; LDL/HDL RATIO 0.8 (<3.6); POTASSIUM 4.2 mmol/L (3.5-4.5); SODIUM 138 mmol/L (135-145); TOTAL PROTEIN 6.8 g/dL (6.4-8.9); TRIGLYCERIDES 71 mg/dL (48-352); VLDL CHOLESTEROL 14 mg/dL
[2023-07-19 20:09] LABS: ESTIMATED AVERAGE GLUCOSE 126 mg/dL (70-100)
== END 2023-07-19 08:59 | disposition home or self-care (01) ==
LOC: LAB.S 08:58
PROVIDERS: ATTEND Nurse Practitioner Family
DX: I10 Essential (primary) hypertension (principal); E78.2 Mixed hyperlipidemia; E11.51 Type 2 diabetes mellitus with diabetic peripheral angiopathy without gangrene
CPT/HCPCS: 36415; 80053; 80061; 82043; 82570; 83036; 83721; 84443; 85025

== ENCOUNTER 2023-08-09 12:54 | Outpatient (CLI) | payer MEDICARE | END 2023-08-09 12:55 | disposition home or self-care (01) | LOC: LAB.S 12:54 | PROVIDERS: ATTEND Nurse Practitioner Family | DX: Z51.81 Encounter for therapeutic drug level monitoring (principal); Z79.01 Long term (current) use of anticoagulants | CPT/HCPCS: 36416; 85610 ==

== ENCOUNTER 2023-08-16 14:15 | Outpatient (CLI) | payer MEDICARE | END 2023-08-16 14:16 | disposition home or self-care (01) | LOC: LAB.S 14:15 | PROVIDERS: ATTEND Nurse Practitioner Family | DX: Z51.81 Encounter for therapeutic drug level monitoring (principal); Z79.01 Long term (current) use of anticoagulants | CPT/HCPCS: 36416; 85610 ==

== ENCOUNTER 2023-09-06 14:50 | Outpatient (CLI) | payer MEDICARE | END 2023-09-06 14:51 | disposition home or self-care (01) | LOC: LAB.S 14:50 | PROVIDERS: ATTEND Nurse Practitioner Family | DX: Z51.81 Encounter for therapeutic drug level monitoring (principal); Z79.01 Long term (current) use of anticoagulants | CPT/HCPCS: 36416; 85610 ==

== ENCOUNTER 2023-10-09 11:14 | Outpatient (CLI) | payer MEDICARE | END 2023-10-09 11:15 | disposition home or self-care (01) | LOC: LAB.S 11:14 | PROVIDERS: ATTEND Family Medicine | DX: Z51.81 Encounter for therapeutic drug level monitoring (principal); Z79.01 Long term (current) use of anticoagulants | CPT/HCPCS: 36416; 85610 ==

== ENCOUNTER 2023-11-12 13:19 | Outpatient (CLI) | payer MEDICARE | END 2023-11-12 13:20 | disposition home or self-care (01) | LOC: LAB.S 13:19 | PROVIDERS: ATTEND Family Medicine | DX: Z51.81 Encounter for therapeutic drug level monitoring (principal); Z79.01 Long term (current) use of anticoagulants | CPT/HCPCS: 36416; 85610 ==

== ENCOUNTER 2023-12-11 13:10 | Outpatient (CLI) | payer MEDICARE | END 2023-12-11 13:11 | disposition home or self-care (01) | LOC: LAB.S 13:10 | PROVIDERS: ATTEND Family Medicine | DX: Z51.81 Encounter for therapeutic drug level monitoring (principal); Z79.01 Long term (current) use of anticoagulants | CPT/HCPCS: 36416; 85610 ==

== ENCOUNTER 2024-01-16 09:46 | Outpatient (CLI) | payer MEDICARE | END 2024-01-16 09:47 | disposition home or self-care (01) | LOC: LAB.S 09:46 | PROVIDERS: ATTEND Family Medicine | DX: Z51.81 Encounter for therapeutic drug level monitoring (principal); Z79.01 Long term (current) use of anticoagulants | CPT/HCPCS: 36416; 85610 ==

== ENCOUNTER 2024-02-11 08:14 | Outpatient (CLI) | payer MEDICARE | END 2024-02-11 08:15 | disposition home or self-care (01) | LOC: LAB.S 08:14 | PROVIDERS: ATTEND Family Medicine | DX: Z51.81 Encounter for therapeutic drug level monitoring (principal); Z79.01 Long term (current) use of anticoagulants | CPT/HCPCS: 36416; 85610 ==

== ENCOUNTER 2024-03-21 09:38 | Outpatient (CLI) | payer MEDICARE | END 2024-03-21 09:39 | disposition home or self-care (01) | LOC: LAB.S 09:38 | PROVIDERS: ATTEND Family Medicine | DX: Z51.81 Encounter for therapeutic drug level monitoring (principal); Z79.01 Long term (current) use of anticoagulants | CPT/HCPCS: 36416; 85610 ==